=== PATIENT | male | born 1955 | race Caucasian/White ===

== ENCOUNTER 2021-12-03 14:02 | Outpatient (CLI) | payer OTHER, SELFPAY ==
--- NOTE | ~2021-12-03 | XR_ITS ---
EXAMINATION: XR finger 5th LT min 2V DATE: 12/03/2021 14:31 INDICATION: Nail and nailbed deformity at the left fifth digit TECHNIQUE: Dorsal palmar, lateral and 2 oblique views of the left fifth digit were obtained COMPARISON: None FINDINGS: Bone alignment is normal. No fracture. 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 No cortical erosions or periosteal reaction. Soft tissu es are unremarkable. IMPRESSION: 1. Mild polyarticular osteoarthritis at a few of the visualized interphalangeal joints. No acute osse ous abnormality. Reviewed, dictated and finalized at location A. IMPRESSION: 1. Mild polyarticular osteoarthritis at a few of the visualized interphalangeal joints. No acute osseous abnormality.
== END 2021-12-03 14:03 | disposition home or self-care (01) ==
PROVIDERS: PCP Family Medicine; Visit Provider Plastic Surgery
DX: S69.92XA Unspecified injury of left wrist, hand and finger(s), initial encounter (principal); M19.042 Primary osteoarthritis, left hand
CPT/HCPCS: 73140